=== PATIENT | male | born 1950 ===

== ENCOUNTER 2018-08-07 19:39 | Emergency (ER) | payer MEDICAID, OTHER ==
[2018-08-07] MEDS ORDERED: Sodium Chloride 0.9% 500 ML IV STA (21:23)
[2018-08-07 21:41] LABS: BASO # 0.1 K/uL (0.0-0.2); BASO % 0.7 % (0.0-2.0); EOS # 0.1 K/uL (0.0-0.7); EOS % 0.9 % (0.0-4.0); HEMOGLOBIN 13.1 g/dL (12.0-18.0); LYMPH # 2.1 K/uL (1.0-4.3); LYMPH % 22.7 % (20.0-40.0); MEAN CELL VOLUME 91.2 fl (80.0-94.0); MEAN CORPUSCULAR HEMOGLOBIN 31.1 pg (27.0-31.0); MEAN CORPUSCULAR HGB CONC 34.1 g/dL (33.0-37.0); MEAN PLATELET VOLUME 7.2 fl (7.2-11.7); MONO # 0.9 K/uL (0.0-0.8); MONO % 9.8 % (0.0-10.0); NEUT % 65.9 % (50.0-75.0); RBC 4.2 Mil/uL (4.40-5.90); RED CELL DISTRIBUTION WIDTH 13.7 % (11.5-14.5); WHITE BLOOD COUNT 9.1 K/uL (4.8-10.8)
[2018-08-07 22:01] LABS: ALB/GLOB RATIO 1.2 (1.0-2.1); ALBUMIN 4.2 g/dL (3.5-5.0); CALCIUM 9.1 mg/dL (8.4-10.2)
--- NOTE | 2018-08-07 22:58 | ED PDOC ---
HPI: Abdomen Time Seen by Provider: 08/07/18 21:07 Chief Complaint (Nursing): Abdominal Pain Chief Complaint (Provider): Abdominal Pain History Per: Patient History/Exam Limitations: no limitations Additional Complaint(s): Phil Rhodes is a 68 year old male who denies past medical history, but states he has dialysis on Mondays, Wednesdays and Fridays. Patient is unsure as to why he needs dialysis. He presents to the emergency department complaining of abdominal bloating, cramping and pain since Sunday. Patient states that he has vomiting for x2 days but it has stopped but the pain continues. He had dialysis today with no complications. Patient stats he has not had any bowel movements since Sunday but does usually have them regularly. He is able to tolerate small amounts of PO and has a metallic taste in mouth. His pain is worse from umbilicus area down. Patient further reports that he has chronic pain on ur ination and that it is not new with these symptoms. He denies to have any sick contacts. PMD: Mian Vac: UTD Past Medical History Reviewed: Historical Data, Nursing Documentation, Vital Signs Vital Signs: Last Vital Signs Temp 99.6 F 08/07/18 20:39 Pulse 105 H 08/07/18 20:39 Resp 16 08/07/18 20:39 BP 107/64 08/07/18 20:39 Pulse Ox 99 08/07/18 20:39 - Medical History PMH: HTN, Hypothyroidism, End Stage Renal Disease, Chronic Kidney Disease - Surgical History Surgical History: No Surg Hx - Family History Family History: States: Unknown Family Hx - Immunization History Hx Tetanus Toxoid Vaccination: No Hx Influenza Vaccination: No Hx Pneumococcal Vaccination: No - Home Medications Home Medications: Ambulatory Orders Medication Instructions Recorded RX: Allopurinol [Zyloprim] 100 mg PO DAILY 03/30/16 RX: Atorvastatin Calcium 10 mg PO HS 03/30/16 RX: Colchicine 0.6 mg PO QWK 03/30/16 RX: Gabapentin [Neurontin] 100 mg PO HS 03/30/16 RX: Levothyroxine Sodium 75 mcg PO ACB 03/30/16 RX: Metoprolol Tartrate [Lopressor] 100 mg PO DAILY 03/30/16 RX: Omeprazole 40 mg PO DAILY 03/30/16 RX: Sevelamer Carbonate [Renvela] 800 mg PO TID 03/30/16 RX: amLODIPine [Norvasc] 10 mg PO DAILY 03/30/16 RX: hydrALAZINE [Apresoline] 25 mg PO TID 03/30/16 RX: Vitamin B Complex/Vit C/Folic 1 tab PO DAILY #0 tab 04/05/16 [Nephro-Oralia] RX: raNITIdine [Zantac Soln 5ml] 150 mg PO DAILY #30 ml 08/07/18 Dicyclomine [Bentyl] 20 mg PO Q12 PRN #14 tab 08/08/18 Ondansetron ODT [Zofran ODT] 4 mg PO Q6 PRN #8 odt 08/08/18 - Allergies Allergies/Adverse Reactions: Allergies Allergy/AdvReac Type Severity Reaction Status Date / Time No Known Allergies Allergy Verified 08/07/18 20:39 Review of Systems ROS Statement: Except As Marked, All Systems Reviewed And Found Negative Gastrointestinal: Positive for: Vomiting, Abdominal Pain, Constipation Genitourinary Male: Positive for: Dysuria Physical Exam - Reviewed Nursing Documentation Reviewed: Yes Vital Signs Reviewed: Yes - Physical Exam Appears: Positive for: Non-toxic, No Acute Distress Head Exam: Positive for: ATRAUMATIC, NORMOCEPHALIC Skin: Positive for: Normal Color, Warm, Dry Eye Exam: Positive for: Normal appearance, EOMI, PERRL ENT: Positive for: Normal ENT Inspection Neck: Positive for: Normal, Painless ROM, Supple Cardiovascular/Chest: Positive for: Regular Rate, Rhythm. Negative for: Murmur Respiratory: Positive for: Normal Breath Sounds. Negative for: Respiratory Distress Gastrointestinal/Abdominal: Positive for: Soft, Tenderness (diffuse abdomen tenderness) Back: Positive for: Normal Inspection. Negative for: L CVA Tenderness, R CVA Tenderness, Vertebral Tenderness Extremity: Positive for: Normal ROM. Negative for: Pedal Edema, Deformity Neurologic/Psych: Positive for: Alert, Oriented. Negative for: Motor/Sensory Deficits - Laboratory Results Result Diagrams: 08/07/18 21:36 08/07/18 21:36 Lab Results: Total Bilirubin 0.6 mg/dl (0.2-1.3) 08/07/18 21:36 AST 32 U/L (17-59) 08/07/18 21:36 ALT 27 U/L (21-72) 08/07/18 21:36 Alkaline Phosphatase 50 U/L (38-126) 08/07/18 21:36 Total Protein 7.6 G/DL (6.3-8.2) 08/07/18 21:36 Albumin 4.2 g/dL (3.5-5.0) 08/07/18 21:36 Globulin 3.4 gm/dL (2.2-3.9) 08/07/18 21:36 Albumin/Globulin Ratio 1.2 (1.0-2.1) 08/07/18 21:36 Lipase 222 U/L (23-300) 08/07/18 21:36 - ECG O2 Sat by Pulse Oximetry: 99 (RA) Pulse Ox Interpretation: Normal Medical Decision Making Medical Decision Making: Time: 2213 A/P: Work up for vomiting, abdominal pain and constipation, rule out obstruction. GI Cocktail for symptom relief. CT abd and pelvis non contrast due to elevated levels of BU and creatinine. Reevaluate patient. --CT abd and pelvis without contrast --Pepcid 40 mg IVP --Reglan 10 mg IVP --Sodium chloride 500 ml --Protonix EC tab 40 mg IVP --UA --CMP --Lipase --CBC with differential Time: 2300 Patient care endorsed to Dr. Nunez, pending CT. Scribe Attestation: Documented by Siddhartha Meyers, acting as a scribe for Nereida Gold MD. Provider Scribe Attestation: All medical record entries made by the Scribe were at my direction and personally dictated by me. I have reviewed the chart and agree that the record accurately reflects my personal performance of the history, physical exam, medical decision making, and the department course for this patient. I have also personally directed, reviewed, and agree with the discharge instructions and disposition. Disposition - Clinical Impression Clinical Impression: Abdominal pain - Disposition Referrals: Harvey Garcia MD, PhD [Staff Provider] - Disposition: Transfer of Care Disposition Time: 23:00 Condition: STABLE Additional Instructions: Follow up with primary medical doctor regarding abdominal pain and follow up with [facility] for end[facility]/colonoscopy. Return to the emergency department if symptoms worsen or if new symptoms develop. Prescriptions: Dicyclomine [Bentyl] 20 mg PO Q12 PRN #14 tab PRN Reason: abdominal pain/diarrhea Ondansetron ODT [Zofran ODT] 4 mg PO Q6 PRN #8 odt PRN Reason: Nausea/Vomiting RX: raNITIdine [Zantac Soln 5ml] 150 mg PO DAILY #30 ml Instructions: Acute Abdomen (Belly Pain), Adult (DC), Viral Gastroenteritis, Adult (DC) Forms: [employer] (Ukrainian), [employer] (Jamaican) Print Language: MALTESE
--- NOTE | 2018-08-07 23:21 | ED PDOC ---
- Laboratory Results Result Diagrams: 08/07/18 21:36 08/07/18 21:36 Lab Results: Total Bilirubin 0.6 mg/dl (0.2-1.3) 08/07/18 21:36 AST 32 U/L (17-59) 08/07/18 21:36 ALT 27 U/L (21-72) 08/07/18 21:36 Alkaline Phosphatase 50 U/L (38-126) 08/07/18 21:36 Total Protein 7.6 G/DL (6.3-8.2) 08/07/18 21:36 Albumin 4.2 g/dL (3.5-5.0) 08/07/18 21:36 Globulin 3.4 gm/dL (2.2-3.9) 08/07/18 21:36 Albumin/Globulin Ratio 1.2 (1.0-2.1) 08/07/18 21:36 Lipase 222 U/L (23-300) 08/07/18 21:36 - ECG O2 Sat by Pulse Oximetry: 99 (RA) Pulse Ox Interpretation: Normal Medical Decision Making Medical Decision Making: Time: 23:00 Patient care endorsed from Dr. Gold to provider pending CT. 23:05 CT Abd Pelvis FINDINGS: LUNG BASES: The lung bases appear clear. No pleural effusions are seen. LIVER: Unremarkable. GALLBLADDER AND BILE DUCTS: The gallbladder appears within normal limits. No radioopaque gallstones are seen. No biliary ductal dilatation is evident. PANCREAS: Unremarkable. SPLEEN: Unremarkable. ADRENAL GLANDS: Unremarkable. KIDNEYS, URETERS, AND BLADDER: Horseshoe kidney is noted, otherwise it is unremarkable. STOMACH AND BOWEL: Severely thick walled fluid filled duodenum and loops of jejunum compatible with enteritis. Thick walled fluid filled sigmoid compatible with colitis. Infectious and inflammatory etiologies are considered. Consider follow up with colonoscopy. APPENDIX: No evidence of acute appendicitis on CT examination. PERITONEUM: No free fluid. No free air. LYMPH NODES: No lymphadenopathy is evident. REPRODUCTIVE: Prostate gland is moderately enlarged and contains calcifications. Please correlate with PSA levels. VASCULATURE: No evidence of abdominal aortic aneurysm. BONES: No aggressive appearing osseous lesion. No acute osseous pathology evident. IMPRESSION: 1. Severely thick walled fluid filled duodenum and loops of jejunum compatible with enteritis. 2. Thick walled fluid filled sigmoid compatible with colitis. Infectious and inflammatory etiologies are considered. Consider follow up with colonoscopy. 3. Horseshoe kidney is noted, otherwise it is unremarkable. 4. Prostate gland is moderately enlarged and contains calcifications. Please correlate with PSA levels. 12:12 Upon reevaluation patient reports no pain at present time. On exam his belly is non-tender and non-distended. Patient also denies having diarrhea. Patient given return precautions and is stable for discharge. He will follow up with his PMD and is being prescribed Bentyl and Zofran. Given absence of leukocytosis, fever, and diarrhea, it is unlikely he has any acute infectious process. Diagnosis is abdominal pain and gastroenteritis. ----- Scribe Attestation: Documented by Neel Blum acting as a scribe for Bob Nunez MD. Provider Scribe Attestation: All medical record entries made by the Scribe were at my direction and personally dictated by me. I have reviewed the chart and agree that the record accurately reflects my personal performance of the history, physical exam, medical decision making, and the department course for this patient. I have also personally directed, reviewed, and agree with the discharge instructions and disposition. Disposition - Clinical Impression Clinical Impression: Abdominal pain - POA Present On Arrival: None - Disposition Referrals: Harvey Garcia MD, PhD [Staff Provider] - Disposition: Routine/Home Disposition Time: 12:12 Additional Instructions: Follow up with primary medical doctor regarding abdominal pain and follow up with [facility] for endoscopy/colonoscopy. Return to the emergency department if symptoms worsen or if new symptoms develop. Prescriptions: Dicyclomine [Bentyl] 20 mg PO Q12 PRN #14 tab PRN Reason: abdominal pain/diarrhea Ondansetron ODT [Zofran ODT] 4 mg PO Q6 PRN #8 odt PRN Reason: Nausea/Vomiting RX: raNITIdine [Zantac Soln 5ml] 150 mg PO DAILY #30 ml Instructions: Acute Abdomen (Belly Pain), Adult (DC), Viral Gastroenteritis, Adult (DC) Forms: [employer] (Estonian), [employer] (Ugandan) Print Language: ARABIC
[2018-08-08 00:21] VITALS: BP 139/79; PULSE 79; RESP 18; TEMP 99.1
[2018-08-08 00:22] VITALS: O2SAT 99
--- NOTE | 2018-08-08 12:15 | CT ---
Date of service: 08/07/2018 PROCEDURE: CT Abdomen and Pelvis without intravenous contrast HISTORY: Rule out obstruction COMPARISON: None. TECHNIQUE: CT scan of the abdomen and pelvis was performed without administration of intravenous contrast. Oral contrast was not administered. Coronal and sagittal reformatted images were obtained. Radiation dose: Total exam DLP = 660.05 mGy-cm. This CT exam was performed using one or more of the following dose reduction techniques: Automated exposure control, adjustment of the mA and/or kV according to patient size, and/or use of iterative reconstruction technique. FINDINGS: LOWER THORAX: There is dependent atelectasis in the lung bases. LIVER: Normal in size. No gross lesion or ductal dilatation. GALLBLADDER AND BILE DUCTS: No calcified gallstones. PANCREAS: Normal in size. No gross lesion or ductal dilatation. SPLEEN: Normal in size. ADRENALS: No discrete nodule. Mild thickening of the left adrenal gland. KIDNEYS AND URETERS: Horseshoe kidney. No hydronephrosis or nephrolithiasis. VASCULATURE: No aortic aneurysm. There are early aortic atherosclerotic calcifications present. BOWEL: There is fluid in the 2nd portion of the duodenum. The small bowel loops are normal in caliber. There is moderate amount of stool in the ascending and transverse colon and large amount of stool and fecal impaction in the left hemicolon and rectum. There is mild circumferential mural thickening in the sigmoid colon. APPENDIX: Normal appendix. PERITONEUM: No free fluid. No free air. LYMPH NODES: No enlarged lymph nodes. BLADDER: Decompressed. REPRODUCTIVE: Mild enlargement of the prostate gland. BONES: No acute fracture. 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 OTHER FINDINGS: None. IMPRESSION: 1. Mild circumferential mural thickening in the sigmoid colon is nonspecific and could be related to underdistention however segmental acute nonspecific infectious/inflammatory colitis is also a consideration. Clinical follow-up is advised. 2. Constipation with fecal impaction in the left hemicolon and rectum. No bowel obstruction. 3. Horseshoe kidney. 4. Mild enlargement of the prostate gland. Please correlate with PSA levels. A preliminary report was provided by [employer].
== END 2018-08-08 00:22 | disposition home or self-care (01) ==
LOC: H.ER 19:39
DX: R10.9 Unspecified abdominal pain (principal); N18.6 End stage renal disease; I12.0 Hypertensive chronic kidney disease with stage 5 chronic kidney disease or end stage renal disease; E03.9 Hypothyroidism, unspecified
CPT/HCPCS: 74176; 80053; 83690; 85025; 96374; 96375; 99283; C9113; J2765; J7030